=== PATIENT | male | born 1950 | race Caucasian/White ===

== ENCOUNTER → 2019-11-17 16:36 | Outpatient (BNVA) | payer MEDICARE, SELFPAY | PROVIDERS: Family Provider Nurse Practitioner; Visit Provider Nurse Practitioner Family | DX: R05 Cough (principal); R53.1 Weakness | CPT/HCPCS: 71046; 81001; 85025 ==

== ENCOUNTER 2019-12-10 13:37 | Outpatient (CLI) | payer MEDICARE, SELFPAY ==
--- NOTE | 2019-12-10 14:15 | CT_ITS ---
WS: [id number] CT HEAD TECHNIQUE: Noncontrast CT of the head obtained from the skullbase to the vertex. CLINICAL INFORMATION: dizziness, slurred speech COMPARISON: None. DLP: 992.[address] scans at [facility] use at least one of these dose optimization techniques: automat ed exposure control; mA and/or kV adjustment per patient size (includes targeted exams where dose is matched to clinical indication); or iterative reconstruction. FINDINGS: No evidence of intracranial hemorrhage or mass effect. Ventricular system and basal cisterns are alexander nt. Mild small vessel changes with moderate parenchymal volume loss worse in the frontal lobes. No ex tra-axial fluid collections. No evidence of mass or mass effect. Normal rubio-white differentiation. Partial opacification of the frontal ethmoidal recesses and ethmoid air cells. Polypoid opacification left sphenoid sinus. Mastoid air cells well aerated. CT/CT head wo con* [id number] IMPRESSION: 1. No evidence of intracranial hemorrhage or mass effect. 2. Mild small vessel changes with moderate parenchymal volume loss worse in th e frontal lobes. 3. Frontal ethmoidal and ethmoid fluid and mucosal thickening consistent with sinusitis. 4. Polyp or retention cyst left sphenoid sinus measuring 2.5 cm.
== END 2019-12-10 13:38 | disposition home or self-care (01) ==
LOC: RADWPI 13:47
PROVIDERS: Family Provider Nurse Practitioner; PCP Nurse Practitioner Family; Visit Provider Nurse Practitioner Family
DX: R42 Dizziness and giddiness (principal); R47.81 Slurred speech
CPT/HCPCS: 70450

== ENCOUNTER → 2019-12-29 09:20 | Outpatient (BNVA) | payer MEDICARE, SELFPAY | PROVIDERS: Family Provider Nurse Practitioner; PCP Nurse Practitioner; Visit Provider Nurse Practitioner | DX: R42 Dizziness and giddiness (principal); I10 Essential (primary) hypertension; R63.4 Abnormal weight loss; Z87.19 Personal history of other diseases of the digestive system | CPT/HCPCS: 80053; 81000; 85025 ==

== ENCOUNTER 2020-01-05 08:54 | Outpatient (CLI) | payer MEDICARE, SELFPAY ==
[2020-01-05] MEDS: iohexol 300 mg/mL 50 mL Btl PO (09:24)
--- NOTE | 2020-01-05 10:15 | CT_ITS ---
WS: [id number] CT CHEST, ABDOMEN, AND PELVIS TECHNIQUE: Noncontrast CT of the chest, abdomen, and pelvis with coronal and sagittal reformatted geovanni ges. CLINICAL INFORMATION: weight loss/rectal bleeding COMPARISON: None. DLP: 2211.[address] scans at [facility] use at least one of these dose optimization techniques: automat ed exposure control; mA and/or kV adjustment per patient size (includes targeted exams where dose is matched to clinical indication); or iterative reconstruction. CT CHEST: Mild chronic emphysematous changes. No acute pulmonary infiltrates. No acute pulmonary infiltrates. N o focal pneumonia. No consolidation or pleural fluid. No suspicious pulmonary parenchymal abnormaliti es. Calcified granuloma left lower lobe. No mediastinal or hilar lymphadenopathy. Aortic calcificatio n. Coronary calcification. Normal GE junction. No axillary lymphadenopathy. CT ABDOMEN AND PELVIS: Noncontrast liver is normal. 6 mm low-attenuation lesion in the dome the liver likely hepatic cyst. M ultiple calcified gallstones in the gallbladder. Gallbladder is contracted. Prominent gallstone in th e gallbladder neck measuring 1.8 cm. Gallbladder can be further evaluated with ultrasound. Noncontrast pancreas is normal. Noncontrast spleen is normal. Adrenal glands normal. No obstructing r enal or ureteral calculi. No hydronephrosis. Small left renal cyst. Infrarenal abdominal aortic aneurysm measuring 2.9 x 2.8 cm. Normal sigmoid colon. No evidence of small or large bowel obstruction. Normal appendix. Enlarged pros monteiro measuring 4.8 x 5.5 CM. Recommend correlation PSA. No free fluid in the pelvis. No abdominal or pelvic lymphadenopathy. Tiny incidental fat-containing umbilical hernia. CT/CT chest abd pel wo con IMPRESSION: 1. Mild chronic emphysematous changes. No acute pulmonary infiltrates. 2. No mediastinal or hilar lymphadenopathy. 3. Gallbladder is contracted with multiple large calcified gallstones one in t he gallbladder neck measuring 1.8 cm. Recommend further evaluation with ultraso und. No pericholecystic fluid. 4. Normal sigmoid colon. No evidence of small or large bowel obstruction. 5. Markedly enlarged prostate measuring 5.5 x 4.8 cm. Recommend correlation PS A. 6. No adenopathy in the chest abdomen or pelvis. 7. Infrarenal abdominal aortic aneurysm measuring 2.9 x 2.8 cm.
== END 2020-01-05 08:55 | disposition home or self-care (01) ==
LOC: RADWPI 08:58
PROVIDERS: Family Provider Nurse Practitioner; PCP Nurse Practitioner; Visit Provider Nurse Practitioner
DX: K62.5 Hemorrhage of anus and rectum (principal); R63.4 Abnormal weight loss; Z87.19 Personal history of other diseases of the digestive system; J43.9 Emphysema, unspecified; K80.80 Other cholelithiasis without obstruction; N40.0 Benign prostatic hyperplasia without lower urinary tract symptoms; I71.4 Abdominal aortic aneurysm, without rupture
CPT/HCPCS: 71250; 74176

== ENCOUNTER → 2020-02-04 12:31 | Outpatient (BNVA) | payer MEDICARE, SELFPAY | PROVIDERS: Family Provider Nurse Practitioner; PCP Nurse Practitioner; Visit Provider Nurse Practitioner | DX: I10 Essential (primary) hypertension (principal); I69.30 Unspecified sequelae of cerebral infarction | CPT/HCPCS: 80061 ==

== ENCOUNTER 2020-03-04 15:49 | Emergency (ER) | payer MEDICARE, SELFPAY ==
[2020-03-04 16:16] VITALS: BP 128/77; PULSE 104; RESP 14; TEMP 36.7; O2SAT 96; BMI 25.8
--- NOTE | 2020-03-04 17:54 | USR_ITS ---
PROCEDURE INFORMATION: Exam: US Abdomen, Limited; Right Upper Quadrant Exam date and time: 03/04/2020 6:05 PM Age: 69 years old Clinical indication: Abdominal pain; Acute; Patient HX: History of gb stones; Additional info: Abd pain, history of gall bladder stones TECHNIQUE: Imaging protocol: US abdomen. Real time ultrasound with image documentation. Limited exam focused on the right upper quadrant. COMPARISON: CT chest abd pel wo con 01/05/2020 10:33 AM FINDINGS: Liver: Normal. No masses. Gallbladder: Contracted with multiple gallstones. GB wall measures 7.2 mm Common bile duct: Normal. No stones. No dilation. 6.7 mm Pancreas: Visualized pancreas is unremarkable. Pancreatic tail is not visible Right kidney: Normal. No mass. No hydronephrosis. 10.4 cm x 4.8 cm x 5.1 cm. Aorta: There is an ectatic abdominal aorta AP measurements are 2.7 cm. US/US gall bladder [id number] IMPRESSION: 1. Contracted gallbladder with multiple gallstones and gallbladder wall thickening 2. Ectatic abdominal aorta 3. Otherwise negative examination
[2020-03-04 17:59] VITALS: BP 165/84; RESP 16; O2SAT 96
[2020-03-04 18:02] LABS: Basophils % 0.5 %; Eosinophils # 0.1 10^3/uL (0.0-0.8); Eosinophils % 1.8 %; Hematocrit 49.6 % (42.0-52.0); Lymphocytes # 1.3 10^3/uL (0.8-4.8); Lymphocytes % 17.6 %; Mean Corpuscular HGB Conc 32.3 g/dL (30.0-36.0); Mean Corpuscular Hemoglobin 29.5 pg (28.0-34.0); Mean Corpuscular Volume 91.3 fL (80-94); Mean Platelet Volume 9.2 fL (7.4-10.4); Monocytes # 0.5 10^3/uL (0.2-0.9); Monocytes % 6.3 %; Neutrophils # 5.4 10^3/uL (1.8-7.7); Neutrophils % 73.5 %; Nucleated Red Blood Cells % 0 %; Platelet Count 288 10^3/cmm (130-400); Red Blood Count 5.43 10^6/uL (4.1-5.3); Red Cell Distribution Width 13.2 % (12.1-15.1); White Blood Count 7.3 10^3/uL (4.0-10.0)
[2020-03-04 18:03] VITALS: PULSE 89; RESP 17; O2SAT 97
[2020-03-04 18:16] LABS: Alanine Aminotransferase 16 U/L (0-41); Albumin Level 4.5 g/dL (3.5-5.2); Alkaline Phosphatase 131 IU/L (40-130); Anion Gap 16.6 (5-19); Aspartate Amino Transferase 14 U/L (0-40); Blood Urea Nitrogen 11 mg/dL (8-23); Calcium 9.9 mg/dL (8.5-10.5); Carbon Dioxide 27 mmol/L (22-29); Chloride 98 mmol/L (98-107); Creatinine Clr Calc Pharmacy 67.6639; Globulin 3.1 g/dL (1.3-4.6); Glomerular Filtration Rate 73.9 mL/min (90-130); Glucose 103 mg/dL (65-115); Lipase 33 U/L (13-60); Osmolality Calculated 282 mOsm/kg (285-295); Potassium 3.6 mmol/L (3.5-5.1); Sodium 138 mmol/L (136-145); Total Bilirubin 0.2 mg/dL (0.15-1.2); Total Protein 7.6 g/dL (6.6-8.7)
[2020-03-04 18:19] LABS: Lactate (Lactic Acid level) 1.2 mmol/L (0.5-2.2)
[2020-03-04 18:48] LABS: Blood Urine 3+ (Negative); Glucose Urine UA Norm (Normal); Ketones Urine 1+ (Negative); Protein Urine 1+ (Negative); Specific Gravity, Urine 1.025 (1.005-1.030); Urine Color Yellow (Yellow); pH Urine 5 (5-7)
[2020-03-04 18:49] LABS: Add Urine Microscopic? YES; Bilirubin Urine Neg (NEGATIVE); Leukocyte Esterase Urine 2+ (Negative); Nitrate Urine Negative (Negative); Urobilinogen Urine 1 mg/dL (Negative)
[2020-03-04 18:57] LABS: Bacteria Urine 2+; Calcium Oxalate Crystals Urine 0-4 /hpf; RBC Urine 25-40 /hpf (0-2); Squamous Epithelial Cell Urine 0-4 (0-5); WBC Urine 15-25 /hpf (0-5)
[2020-03-04 18:58] LABS: Add Urine Culture? Yes
--- NOTE | 2020-03-04 19:05 | CTR_ITS ---
PROCEDURE INFORMATION: Exam: CT Angiography Abdomen and Pelvis With Contrast Exam date and time: 03/04/2020 7:33 PM Age: 69 years old Clinical indication: Condition or disease; Other: Aaa; Additional info: Aaa, rectal bleeding TECHNIQUE: Imaging protocol: Computed tomographic angiography of the abdomen and pelvis with intravenous contrast material. 3D rendering: MIP and/or 3D reconstructed images were created by the technologist. Radiation optimization: All CT scans at this facility use at least one of these dose optimization techniques: automated exposure control; mA and/or kV adjustment per patient size (includes targeted exams where dose is matched to clinical indication); or iterative reconstruction. Contrast material: OMNI 350; Contrast volume: 95 ml; Contrast route: INTRAVENOUS (IV); COMPARISON: CT chest abd pel wo con 01/05/2020 10:33 AM RADIATION DOSE METRICS: Total DLP (mGy-cm): 552.13 FINDINGS: Tubes, catheters and devices: Urinary bladder with Rodriges catheter in place. Aorta: Examination again reveals a infrarenal fusiform abdominal aortic aneurysm with maximum AP intraluminal diameter proximally 33 mm in transverse diameter 30 mm. Length of the aneurysm approximately 5.2 cm. Moderate intramural thrombus. No luminal occlusion. 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 Left common iliac for 13 mm in the right 16 mm. 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 Partial retrograde filling through collaterals. Narrow lumens of the left external and internal iliac arteries but without complete occlusion. Celiac trunk and mesenteric arteries: Celiac artery, superior mesenteric artery, bilateral renal arteries, and the inferior mesenteric artery without evidence of hemodynamically significant stenosis or occlusion. Renal arteries: No occlusion or significant stenosis. Right iliac arteries: See Aorta finding. Left iliac arteries: See Aorta finding. Liver: Tiny simple cyst left hepatic lobe. Liver otherwise unremarkable. Gallbladder and bile ducts: Contracted gallbladder containing a large gallstone that measures 28 mm by 20 mm. Rare substantially smaller stones. No intra or extrahepatic biliary ectasia. Pancreas: Unremarkable. No mass. No ductal dilation. Spleen: Unremarkable. No splenomegaly. Adrenals: Unremarkable. No mass. Kidneys and ureters: Stable simple cortical cyst equator left kidney and stable tiny cortical cyst inferior pole right kidney. No follow-up recommended. No hydronephrosis or perinephric fluid. Stomach and bowel: Nonobstructive bowel pattern. No visible adynamic or reactive ileus. No evidence for diverticulosis coli or diverticulitis. Appendix: The appendix is visualized and is noninflamed. Intraperitoneal space: Unremarkable. No free air. No significant fluid collection. Lymph nodes: Unremarkable. No enlarged lymph nodes. Bladder: Rodriges catheter within the urinary bladder. Diffuse bladder wall thickening. Reproductive: Prostate hypertrophy. Bones/joints: Age-appropriate degenerative disease. No visible active or acute osseous abnormality identified. Soft tissues: Unremarkable. CT/CT angio abdomen pelvis [id number] IMPRESSION: 1. Examination again reveals a infrarenal fusiform abdominal aortic aneurysm with maximum AP intraluminal diameter proximally 33 mm in transverse diameter 30 mm. Length of the aneurysm approximately 5.2 cm. 2. 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 Partial retrograde filling through collaterals. 3. Other nonurgent, nonemergent, chronic, and age related findings as detailed in text above. Radiation Dose CTDIVOL = (mGy): DLP = 552.13 (mGy-cm)
[2020-03-04] MEDS: iohexol 350 mg/mL 100 mL Btl IV (19:55)
--- NOTE | 2020-03-04 21:21 | ED_ITS ---
HPI - Abdominal Pain General: Chief Complaint: Abdominal Pain Stated Complaint: poss seizure Time Seen by Provider: 03/04/20 17:26 Source: patient and family Mode of arrival: ambulatory History of Present Illness: HPI narrative: Patient presents to the emergency department with his daughter and his and his family wanted him evaluated for possible gallbladder disease. He has a history of gallstones. The patient is reluctant to be seen in the emergency department. He however has no complaints today, he denies any abdominal pain, nausea, vomiting. He does states that he occasionally has blood in his stools when he has a hard bowel movements. He has a history of hemorrhoids and he believes his hemorrhoids bleed when he pushes a hard bowel movement. He developed seizures a few months ago and has been worked up including several CTs, EEGs, lumbar puncture and no diagnosis has been found. He has been referred to a neurologist at [place] and the appointment is upcoming. He has also been advised to obtain a colonoscopy which she has been hesitant to do according to the patient and his family. The patient however states he is ready to do that now. His daughter brings him in because she would like all his outstanding test to be done including a colonoscopy. Advised her that unless he has an acute reason a colonoscopy will not be performed in the hospital, it will need to be done out patient. His daughter kept adding different stories in an attempt 1 of them will get him admitted. The patient does not desire to be here and eventually got into an argument with his daughter and I had to ask her to leave the room as she was upsetting him. Associated Symptoms: Denies chills, dysuria, fever(s), nausea and vomiting Review of Systems General: Reports: 10 or more systems reviewed and unremarkable except in HPI and below Const: Denies: fever(s), chills or body aches Eyes: Denies: change in vision or blurry vision ENMT: Denies: throat pain, enlarged tonsils, odynophagia, hoarseness, mouth pain or swelling of lips/tongue Card: Denies: palpitations, irregular heart rhythm, edema or swelling of feet/ankles Resp: Denies: dyspnea, productive cough or non-productive cough GI: Denies: abdominal pain, nausea or vomiting : Denies: flank pain, dysuria, urinary frequency, urinary urgency or urinary hesitancy Musc: Denies: neck pain, back pain or extremity swelling Skin/Breast: Denies: rash, pruritus or erythema Neuro: Denies: headache(s), numbness in extremities or weakness in extremities Endo: Denies: polyuria, polydipsia or tired all the time PFSH ED PFSH: Medical History Bronchitis History of CVA with residual deficit History of hearing loss History of rectal bleeding Rapid weight loss Sinusitis Surgical History No history of previous surgery Family History Mother Vascular disease Father Cancer Denies family history of Anesthesia complication Bleeding disorder Social History Smoking and tobacco status: current every day smoker cigarettes Packs smoked per day: 1 Years cigarettes smoked: 40 Second hand smoke exposure: Yes Smoking risk assessment/counseling performed?: Yes Alcohol intake: never Desire information about alcohol rehabilitation?: No Counseling given: No Desire information about substance/drug rehabilitation?: No Counseling given: No Adopted: No Caregiver/support person: No Lives independently: Yes Household members: spouse Housing: House Marital status: Current occupational status: retired History of recent travel: No Current gender identity: Male Physical Exam Const: COMMON NORMALS: no acute distress, average body habitus, patient oriented x3, no limitations, healthy appearing, alert and well nourished Neck/C-Spine: COMMON NORMALS: no meningeal signs and no JVD Resp: COMMON NORMALS: normal respiratory effort, No retractions, No use of accessory muscles, clear to auscultation bilaterally and percussion normal AUSCULTATION: clear to auscultation bilaterally PERCUSSION: percussion normal Cardio: COMMON NORMALS: no JVD, regular rate, regular rhythm, S1 normal heart sound present, S2 normal heart sound present, No gallops present (Cardio), No clicks present (Cardio), No murmurs present (Cardio), No rub (Cardio) and Peripheral pulses 2+ throughout RATE: regular rate RHYTHM: regular rhythm HEART SOUNDS: S1 normal heart sound present and S2 normal heart sound present PERIPHERAL PULSES: Peripheral pulses 2+ throughout GI: COMMON NORMALS: Normal to inspection, nondistended, normoactive bowel sounds present, Soft to palpation, non-tender, No hepatosplenomegaly present, no masses and no bruits PALPATION: Yes Soft to palpation and Yes No hepatosplenomegaly present : COMMON NORMALS: Yes no CVA tenderness BLADDER/KIDNEY EXAM: Yes no CVA tenderness Back/Pelvis: COMMON NORMALS: no CVA tenderness Extremity: COMMON NORMALS: normal to inspection, full ROM, capillary refill normal, no calf tenderness and no pedal edema Neuro: COMMON NORMALS: patient oriented x3 SENSORIUM/ORIENTATION: Yes alert MENINGEAL SIGNS: Yes no meningeal signs Skin: COMMON NORMALS: no rashes or lesions noted, no wounds, turgor normal, no jaundice, no petechiae and no mottling GENERAL SKIN EXAM: no rashes or lesions noted and turgor normal Course Consultations: Consultation #1: Dr. Glover, vascular surgeon at [facility] in [place]. Since the patient has collaterals these are chronic findings and he will be seen in the clinic in 2 weeks. Vascular surgery clinic will contact the patient and schedule an appointment. Time: 21:19 Vital Signs: Vital signs: Vital Signs Temperature 98.0 F 03/04/20 16:16 Pulse Rate 86 03/04/20 21:46 Respiratory Rate 17 03/04/20 18:03 Blood Pressure 124/76 03/04/20 21:46 Pulse Oximetry 96 03/04/20 21:46 MDM - Abdominal Pain MDM Narrative: Medical decision making narrative: 69-year-old gentleman who was brought into the emergency department for evaluation of his gallbladder. Ultrasound of his gallbladder shows cholelithiasis but no cholecystitis. An incidental finding on his ultrasound showed an ectatic aorta are and since he had occasional rectal bleeding I ordered a CTA of his aorta. CTA showed an aneurysm and a completely occluded right internal iliac artery. He has some thrombus and atherosclerosis in his common iliac artery. He does have collaterals. I contacted the vascular surgeon and he will see the patient in the clinic. The patient has recent onset seizures and has been worked up but has a follow-up appointment in [place] for these. He also has appointments for colonoscopy and other doctors appointments that he will get to. I explained to the patient and his family that there is no indication for admission and so we will discharge him home. Lab Data: Labs: Lab Results 03/04/20 03/04/20 03/04/20 Range/Units 17:48 17:48 17:48 WBC 7.3 (4.0-10.0) 10^3/ uL RBC 5.43 H (4.1-5.3) 10^6/u L Hgb 16.0 (11.7-16.6) g/dL Hct 49.6 (42.0-52.0) % MCV 91.3 (80-94) fL MCH 29.5 (28.0-34.0) pg MCHC 32.3 (30.0-36.0) g/dL RDW 13.2 (12.1-15.1) % Plt Count 288 (130-400) 10^3/c mm MPV 9.2 (7.4-10.4) fL Neut % (Auto) 73.5 % Lymph % (Auto) 17.6 % [place] % (Auto) 6.3 % Eos % (Auto) 1.8 % Baso % (Auto) 0.5 % Neut # (Auto) 5.4 (1.8-7.7) 10^3/u L Lymph # (Auto) 1.3 (0.8-4.8) 10^3/u L [place] # (Auto) 0.5 (0.2-0.9) 10^3/u L Eos # (Auto) 0.1 (0.0-0.8) 10^3/u L Baso # (Auto) 0.0 (0.0-0.1) 10^3/u L Nucleated RBC % (a uto) 0 % Nucleated RBCs # 0.0 /100WBC Sodium 138 (136-145) mmol/L Potassium 3.6 (3.5-5.1) mmol/L Chloride 98 (98-107) mmol/L Carbon Dioxide 27 (22-29) mmol/L Anion Gap 16.6 (5-19) BUN 11 (8-23) mg/dL Creatinine 1.0 (0.7-1.2) mg/dL GFR Calculation 73.9 L (90-130) mL/min Glucose 103 (65-115) mg/dL Calculated Osmolal ity 282 L (285-295) mOsm/k g Lactate 1.2 (0.5-2.2) mmol/L Calcium 9.9 (8.5-10.5) mg/dL Total Bilirubin 0.2 (0.15-1.2) mg/dL AST 14 (0-40) U/L ALT 16 (0-41) U/L Alkaline Phosphata se 131 H (40-130) IU/L Total Protein 7.6 (6.6-8.7) g/dL Albumin 4.5 (3.5-5.2) g/dL Globulin 3.1 (1.3-4.6) g/dL Lipase 33 (13-60) U/L Urine Color (Yellow) Urine Appearance (CLEAR) Urine pH (5-7) Ur Specific Gravit y (1.005-1.030) Urine Protein (Negative) Urine Glucose (UA) (Normal) Urine Ketones (Negative) Urine Blood (Negative) Urine Nitrate (Negative) Urine Bilirubin (NEGATIVE) Urine Urobilinogen (Negative) mg/dL Ur Leukocyte Palak ase (Negative) Urine RBC (0-2) /hpf Urine WBC (0-5) /hpf Ur Squamous Epith Cells (0-5) Calcium Oxalate Cr ystal /hpf Amorphous Sediment Urine Bacteria (NONE) 03/04/20 Range/Units 18:33 WBC (4.0-10.0) 10^3/ uL RBC (4.1-5.3) 10^6/u L Hgb (11.7-16.6) g/dL Hct (42.0-52.0) % MCV (80-94) fL MCH (28.0-34.0) pg MCHC (30.0-36.0) g/dL RDW (12.1-15.1) % Plt Count (130-400) 10^3/c mm MPV (7.4-10.4) fL Neut % (Auto) % Lymph % (Auto) % [place] % (Auto) % Eos % (Auto) % Baso % (Auto) % Neut # (Auto) (1.8-7.7) 10^3/u L Lymph # (Auto) (0.8-4.8) 10^3/u L [place] # (Auto) (0.2-0.9) 10^3/u L Eos # (Auto) (0.0-0.8) 10^3/u L Baso # (Auto) (0.0-0.1) 10^3/u L Nucleated RBC % (a uto) % Nucleated RBCs # /100WBC Sodium (136-145) mmol/L Potassium (3.5-5.1) mmol/L Chloride (98-107) mmol/L Carbon Dioxide (22-29) mmol/L Anion Gap (5-19) BUN (8-23) mg/dL Creatinine (0.7-1.2) mg/dL GFR Calculation (90-130) mL/min Glucose (65-115) mg/dL Calculated Osmolal ity (285-295) mOsm/k g Lactate (0.5-2.2) mmol/L Calcium (8.5-10.5) mg/dL Total Bilirubin (0.15-1.2) mg/dL AST (0-40) U/L ALT (0-41) U/L Alkaline Phosphata se (40-130) IU/L Total Protein (6.6-8.7) g/dL Albumin (3.5-5.2) g/dL Globulin (1.3-4.6) g/dL Lipase (13-60) U/L Urine Color Yellow (Yellow) Urine Appearance Sl cloudy A (CLEAR) Urine pH 5 (5-7) Ur Specific Gravit y 1.025 (1.005-1.030) Urine Protein 1+ H (Negative) Urine Glucose (UA) Norm (Normal) Urine Ketones 1+ H (Negative) Urine Blood 3+ H (Negative) Urine Nitrate Negative (Negative) Urine Bilirubin Neg (NEGATIVE) Urine Urobilinogen 1 H (Negative) mg/dL Ur Leukocyte Palak ase 2+ H (Negative) Urine RBC 25-40 H (0-2) /hpf Urine WBC 15-25 H (0-5) /hpf Ur Squamous Epith Cells 0-4 H (0-5) Calcium Oxalate Cr ystal 0-4 H /hpf Amorphous Sediment Not Reportable Urine Bacteria 2+ H (NONE) Imaging Data ^: Other CT: Radiologist's impression: [address] [address] [address] Scan Report Signed Patient: Bereket Lopes #: [id number] : 1950Acct#:[id number] Age/Sex: 69 / MADM Date: 03/04/20 Loc: ERRoom/Bed: Attending Dr: Ordering Provider/Ordering MD: Cindi Duckworth MD, NATALIE Date of Service: 03/04/20 Procedure(s): CT angio abdomen pelvis 78877 Accession Number(s): [id number] Report Number: [id number] PROCEDURE INFORMATION: Exam: CT Angiography Abdomen and Pelvis With Contrast Exam date and time: 03/04/2020 7:33 PM Age: 69 years old Clinical indication: Condition or disease; Other: Aaa; Additional info: Aaa, rectal bleeding TECHNIQUE: Imaging protocol: Computed tomographic angiography of the abdomen and pelvis with intravenous contrast material. 3D rendering: MIP and/or 3D reconstructed images were created by the technologist. Radiation optimization: All CT scans at this facility use at least one of these dose optimization techniques: automated exposure control; mA and/or kV adjustment per patient size (includes targeted exams where dose is matched to clinical indication); or iterative reconstruction. Contrast material: OMNI 350; Contrast volume: 95 ml; Contrast route: INTRAVENOUS (IV); COMPARISON: CT chest abd pel wo con 01/05/2020 10:33 AM RADIATION DOSE METRICS: Total DLP (mGy-cm): 552.13 FINDINGS: Tubes, catheters and devices: Urinary bladder with Rodriges catheter in place. Aorta: Examination again reveals a infrarenal fusiform abdominal aortic aneurysm with maximum AP intraluminal diameter proximally 33 mm in transverse diameter 30 mm. Length of the aneurysm approximately 5.2 cm. Moderate intramural thrombus. No luminal occlusion. 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 Left common iliac for 13 mm in the right 16 mm. 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 Partial retrograde filling through collaterals. Narrow lumens of the left external and internal iliac arteries but without complete occlusion. Celiac trunk and mesenteric arteries: Celiac artery, superior mesenteric artery, bilateral renal arteries, and the inferior mesenteric artery without evidence of hemodynamically significant stenosis or occlusion. Renal arteries: No occlusion or significant stenosis. Right iliac arteries: See Aorta finding. Left iliac arteries: See Aorta finding. Liver: Tiny simple cyst left hepatic lobe. Liver otherwise unremarkable. Gallbladder and bile ducts: Contracted gallbladder containing a large gallstone that measures 28 mm by 20 mm. Rare substantially smaller stones. No intra or extrahepatic biliary ectasia. Pancreas: Unremarkable. No mass. No ductal dilation. Spleen: Unremarkable. No splenomegaly. Adrenals: Unremarkable. No mass. Kidneys and ureters: Stable simple cortical cyst equator left kidney and stable tiny cortical cyst inferior pole right kidney. No follow-up recommended. No hydronephrosis or perinephric fluid. Stomach and bowel: Nonobstructive bowel pattern. No visible adynamic or reactive ileus. No evidence for diverticulosis coli or diverticulitis. Appendix: The appendix is visualized and is noninflamed. Intraperitoneal space: Unremarkable. No free air. No significant fluid collection. Lymph nodes: Unremarkable. No enlarged lymph nodes. Bladder: Rodriges catheter within the urinary bladder. Diffuse bladder wall thickening. Reproductive: Prostate hypertrophy. Bones/joints: Age-appropriate degenerative disease. No visible active or acute osseous abnormality identified. Soft tissues: Unremarkable. CT/CT angio abdomen pelvis 44080 IMPRESSION: 1. Examination again reveals a infrarenal fusiform abdominal aortic aneurysm with maximum AP intraluminal diameter proximally 33 mm in transverse diameter 30 mm. Length of the aneurysm approximately 5.2 cm. 2. 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 Partial retrograde filling through collaterals. 3. Other nonurgent, nonemergent, chronic, and age related findings as detailed in text above. Radiation Dose CTDIVOL = (mGy): DLP = 552.13 (mGy-cm) Dictated By:Ger Jovel Signed By:Karlo Jovel Date/Time:03/04/202016 DD/ 14 US: Radiologist's impression: [address] [place] [address] Ultrasound Report Signed Patient: Bereket Lopes #: [id number] : 9Acct#:[id number] Age/Sex: 69 / MADM Date: 03/04/20 Loc: ERRoom/Bed: Attending Dr: Ordering Provider/Ordering MD: Cindi Duckworth MD, [facility] Date of Service: 03/04/20 Procedure(s): US gall bladder 21229 Accession Number(s): [id number] Report Number: [id number] PROCEDURE INFORMATION: Exam: US Abdomen, Limited; Right Upper Quadrant Exam date and time: 03/04/2020 6:05 PM Age: 69 years old Clinical indication: Abdominal pain; Acute; Patient HX: History of gb stones; Additional info: Abd pain, history of gall bladder stones TECHNIQUE: Imaging protocol: US abdomen. Real time ultrasound with image documentation. Limited exam focused on the right upper quadrant. COMPARISON: CT chest abd pel wo con 01/05/2020 10:33 AM FINDINGS: Liver: Normal. No masses. Gallbladder: Contracted with multiple gallstones. GB wall measures 7.2 mm Common bile duct: Normal. No stones. No dilation. 6.7 mm Pancreas: Visualized pancreas is unremarkable. Pancreatic tail is not visible Right kidney: Normal. No mass. No hydronephrosis. 10.4 cm x 4.8 cm x 5.1 cm. Aorta: There is an ectatic abdominal aorta AP measurements are 2.7 cm. US/US gall bladder 76912 IMPRESSION: 1. Contracted gallbladder with multiple gallstones and gallbladder wall thickening 2. Ectatic abdominal aorta 3. Otherwise negative examination Dictated By:Lee Seymour Signed By:Samm Seymour Date/Time:03/04/201853 DD/ 51 Discharge Plan Discharge Patient Disposition: Home, Self-Care Clinical Impression: Iliac artery occlusion, right, Asymptomatic gallstones AAA (abdominal aortic aneurysm) Qualifiers: Presence of rupture: without rupture Qualified Code(s): I71.4 - Abdominal aortic aneurysm, without rupture Condition: Stable Prescriptions: Continued meclizine 25 mg tablet 25 mg PO TID PRN (Reason: dizziness) RF: 0 phenytoin sodium extended 100 mg capsule 100 mg PO TID RF: 0 atorvastatin [Lipitor] 10 mg tablet 10 mg PO DAILY Qty: 30 RF: 2 Discharge Orders: Discharge Order (Routine); Ordered 03/04/20 Ordered By: Cindi Duckworth Referrals: Abigail Huitron FNP-C [Primary Care Provider] - 1-3 days Patient Instructions: Abdominal Aortic Aneurysm (GEN) Activity Restrictions/Additional Instructions: Return for any new or worsening symptoms. Follow-up with your primary care provider within 3 days and with all your other appointments as scheduled. You will be contacted by the vascular surgery team from [facility] in [place] to schedule a clinic follow-up for your blocked arteries. Discharge Date/Time: 03/04/20 21:45 Coding Level of Care Code ED Manager Media for Nato Garcia
--- NOTE | 2020-03-04 21:44 | PC.NURSE ---
Pt informed of risks and benefits at discharge with daughter present
[2020-03-04 21:46] VITALS: BP 124/76; PULSE 86; O2SAT 96
--- NOTE | 2020-03-05 04:26 | PC.NURSE ---
Dr Duckworth spoke with [facility] ED cash register operator due to pt's daughter stating pt was supposed to have emergency surgery . Dr Duckworth explained that pt was d/c with dx of AAA due to pt's refusal to be transferred to [facility] ED via ground ambulance. Pt's daughter called dept twice demanding to speak to nursing staff stating pt was told he was leaving AMA and signed AMA paperwork. Pt daughter informed he signed normal discharge form with instructions for follow up care. Since pt refused to be transferred via EMS, his follow up was on outpatient status. [facility] zinc furnace charger called to verify that pt did not leave AMA and his follow up was on outpatient basis.
== END 2020-03-04 21:45 | disposition home or self-care (01) ==
PROVIDERS: Family Medicine; Emergency Provider Family Medicine; PCP Nurse Practitioner
DX: I74.5 Embolism and thrombosis of iliac artery (principal); I71.4 Abdominal aortic aneurysm, without rupture; Z86.73 Personal history of transient ischemic attack (TIA), and cerebral infarction without residual deficits; F17.210 Nicotine dependence, cigarettes, uncomplicated; Z79.899 Other long term (current) drug therapy
CPT/HCPCS: 12345; 74174; 76705; 80053; 81001; 83605; 83690; 85025; 87086; 99284; Q9967

== ENCOUNTER → 2020-03-15 10:52 | Outpatient (BNVA) | payer MEDICARE, SELFPAY | PROVIDERS: PCP Nurse Practitioner; Visit Provider Nurse Practitioner | DX: R56.9 Unspecified convulsions (principal); Z79.899 Other long term (current) drug therapy | CPT/HCPCS: 80185 ==

== ENCOUNTER → 2020-05-30 12:41 | Outpatient (BNVA) | payer MEDICARE, SELFPAY | PROVIDERS: PCP Nurse Practitioner; Visit Provider Specialist | DX: G40.109 Localization-related (focal) (partial) symptomatic epilepsy and epileptic syndromes with simple partial seizures, not intractable, without status epilepticus (principal); F17.210 Nicotine dependence, cigarettes, uncomplicated | CPT/HCPCS: 95816 ==

== ENCOUNTER 2020-11-02 18:05 | Emergency (ER) | payer OTHER, MEDICARE, SELFPAY ==
[2020-11-02 18:08] VITALS: BP 136/74; PULSE 103; RESP 16; TEMP 37.1; O2SAT 97; BMI 25.0
--- NOTE | 2020-11-02 18:17 | ECG_ITS ---
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
--- NOTE | 2020-11-02 18:17 | CTR_ITS ---
PROCEDURE INFORMATION: Exam: CT Head Without Contrast Exam date and time: 11/02/2020 7:05 PM Age: 70 years old Clinical indication: Altered mental status/memory loss; Additional info: AMS TECHNIQUE: Imaging protocol: Computed tomography of the head without contrast. Radiation optimization: All CT scans at this facility use at least one of these dose optimization techniques: automated exposure control; mA and/or kV adjustment per patient size (includes targeted exams where dose is matched to clinical indication); or iterative reconstruction. COMPARISON: CT head wo con* [id number] 12/10/2019 1:52 PM RADIATION DOSE METRICS: Total DLP (mGy-cm): 836.41 FINDINGS: Brain: There is moderate cerebral atrophy. No acute intracranial hemorrhage. No midline shift of brain. Randhawa matter white matter interfaces are preserved. No space-occupying intracranial mass. No acute brain ischemia identified. Cerebral ventricles: No ventriculomegaly. Bones/joints: Unremarkable. No acute fracture. Paranasal sinuses: Patchy mucosal thickening of ethmoid air cells. Fluid in the left sphenoid sinus. Mastoid air cells: Visualized mastoid air cells are well aerated. Vasculature: Mild intracranial atherosclerosis. Soft tissues: Unremarkable. CT/CT head wo con* [id number] IMPRESSION: 1. Negative for acute intracranial abnormality. 2. No change in the brain from comparison on 12/10/2019. Radiation Dose CTDIVOL = (mGy): DLP = 836.41 (mGy-cm)
--- NOTE | 2020-11-02 18:17 | XRR_ITS ---
PROCEDURE INFORMATION: Exam: XR Chest Exam date and time: 11/02/2020 7:10 PM Age: 70 years old Clinical indication: Patient HX: AMS. Unable to obtain further history. TECHNIQUE: Imaging protocol: XR of the chest Views: 1 view. COMPARISON: CT chest abd pel wo con 01/05/2020 10:33 AM FINDINGS: Lungs: Lungs are clear. Pleural spaces: There is no pleural effusion or pneumothorax. Heart/Mediastinum: Cardiomediastinal contours are unremarkable. Bones/joints: Bones are unremarkable. XR/XR chest 1V portable [id number] IMPRESSION: No acute findings.
[2020-11-02 18:26] VITALS: O2SAT 98
--- NOTE | 2020-11-02 18:36 | ED_ITS ---
HPI - Psych General: Chief Complaint: Psychiatric Symptoms Stated Complaint: SI/HI ENCEPHALOPATHY Time Seen by Provider: 11/02/20 18:17 Source: EMS Mode of arrival: EMS Limitations: no limitations History of Present Illness: HPI Narrative: 70-year-old male has a history of encephalopathy and is currently on hospice. Patient is here today as he has been having suicidal and homicidal ideations. Patient taken a sleeping pill he states he is trying to sleep denies actually being suicidal. When EMS did arrive though he was holding a shotgun to his and his states that he has been threatening to kill her over the last 2 days. Patient here has chronic confusion but is able to tell me his name and knows where he is. He is not orientated to the date or time. Associated symptoms: Reports homicidal ideation; Deny depression Review of Systems Const: Denies: fever(s), chills, body aches or change in appetite Eyes: Denies: blurry vision or eye discomfort ENMT: Denies: throat pain or dental pain Card: Denies: chest pain Resp: Denies: dyspnea GI: Denies: abdominal pain, nausea, vomiting or diarrhea : Denies: dysuria Musc: Denies: neck pain or back pain Skin/Breast: Denies: rash Neuro: Denies: headache(s) Psych: Reports: homicidal ideation; Denies: depression Davon/Lymph: Denies: easy bruising All/Imm: Denies: urticaria PFS ED PFSH: Medical History (Updated 11/03/20 @ 03:28 by Malini Babb MD) Anxiety about health Bronchitis Chronic sinusitis Encephalitis, viral, 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 History of hearing loss History of rectal bleeding Peripheral Vascular Disease Rapid weight loss Urinary retention Surgical History No history of previous surgery Family History Mother Vascular disease Father Cancer Denies family history of Anesthesia complication Bleeding disorder Social History Smoking and tobacco status: current every day smoker cigarettes Packs smoked per day: 1 Years cigarettes smoked: 40 Second hand smoke exposure: Yes Smoking risk assessment/counseling performed?: Yes Alcohol intake: never Desire information about alcohol rehabilitation?: No Counseling given: No Desire information about substance/drug rehabilitation?: No Counseling given: No Adopted: No Caregiver/support person: No Lives independently: Yes Household members: spouse Housing: House Marital status: Current occupational status: retired History of recent travel: No Current gender identity: Male Physical Exam Const: COMMON NORMALS: no acute distress, healthy appearing and alert; negative for patient oriented x3 ORIENTATION/CONSCIOUSNESS: Yes oriented to person and Yes oriented to place; not oriented to time HENMT: COMMON NORMALS: normocephalic and atraumatic HEAD & SCALP: normocephalic and atraumatic Eye: COMMON NORMALS: Equal, round and reactive pupils present and EOMs intact bilaterally PUPIL: Yes Equal, round and reactive pupils present Neck/C-Spine: COMMON NORMALS: full ROM and supple Chest: COMMONS NORMALS: normal inspection of the chest and normal palpation of entire chest wall Resp: COMMON NORMALS: normal respiratory effort, No retractions, No use of accessory muscles and clear to auscultation bilaterally AUSCULTATION: clear to auscultation bilaterally Cardio: COMMON NORMALS: regular rate, regular rhythm and No murmurs present (Cardio) RATE: regular rate RHYTHM: regular rhythm GI: COMMON NORMALS: Normal to inspection, nondistended, normoactive bowel sounds present, Soft to palpation, non-tender and no masses PALPATION: Yes Soft to palpation Extremity: COMMON NORMALS: normal to inspection and full ROM Neuro: COMMON NORMALS: moves all extremities and no focal motor deficits; negative for patient oriented x3 SENSORIUM/ORIENTATION: Yes alert, Yes oriented to person, Yes oriented to place and No oriented to time Psych: COMMON NORMALS: Normal thought process present; negative for mental status grossly normal THOUGHT PROCESS: Normal thought process present THOUGHT CONTENT: Yes Homicidality present Skin: COMMON NORMALS: no rashes or lesions noted and no wounds GENERAL SKIN EXAM: no rashes or lesions noted MDM - Psych MDM Narrative: Medical decision making narrative: Patient presents here with homicidal ideation along with depression. Patient is medically cleared here and is excepted to [facility] psych. Will transfer there at this time. Lab Data: Labs: Lab Results 11/02/20 11/02/20 11/02/20 Range/Units 19:01 19:01 20:19 WBC 6.5 (4.0-10.0) 10^3/ uL RBC 4.56 (4.1-5.3) 10^6/u L Hgb 13.8 (11.7-16.6) g/dL Hct 41.8 L (42.0-52.0) % MCV 91.7 (80-94) fL MCH 30.3 (28.0-34.0) pg MCHC 33.0 (30.0-36.0) g/dL RDW 13.8 (12.1-15.1) % Plt Count 256 (130-400) 10^3/c mm MPV 9.7 (7.4-10.4) fL Neut % (Auto) 64.1 % Lymph % (Auto) 21.4 % [place] % (Auto) 8.0 % Eos % (Auto) 5.4 % Baso % (Auto) 0.8 % Neut # (Auto) 4.14 (1.8-7.7) 10^3/u L Lymph # (Auto) 1.4 (0.8-4.8) 10^3/u L [place] # (Auto) 0.5 (0.2-0.9) 10^3/u L Eos # (Auto) 0.4 (0.0-0.8) 10^3/u L Baso # (Auto) 0.1 (0.0-0.1) 10^3/u L Nucleated RBC % (a uto) 0 % Nucleated RBCs # 0.0 /100WBC Sodium 140 (136-145) mmol/L Potassium 4.5 (3.5-5.1) mmol/L Chloride 104 (98-107) mmol/L Carbon Dioxide 28 (22-29) mmol/L Anion Gap 12.5 (5-19) BUN 14 (8-23) mg/dL Creatinine 1.1 (0.7-1.2) mg/dL GFR Calculation Not Reportable Glucose 101 (65-115) mg/dL Calculated Osmolal ity 291 (285-295) mOsm/k g Calcium 8.9 (8.5-10.5) mg/dL Total Bilirubin 0.2 (0.15-1.2) mg/dL AST 14 (0-40) U/L ALT 17 (0-41) U/L Alkaline Phosphata se 81 (40-130) IU/L Ammonia 33 (16-60) umol/L Total Protein 6.3 L (6.6-8.7) g/dL Albumin 3.7 (3.5-5.2) g/dL Globulin 2.6 (1.3-4.6) g/dL TSH 1.64 (0.27-4.20) uIU/ mL Urine Color (Yellow) Urine Appearance (CLEAR) Urine pH (5-7) Ur Specific Gravit y (1.005-1.030) Urine Protein (Negative) Urine Glucose (UA) (Normal) Urine Ketones (Negative) Urine Blood (Negative) Urine Nitrate (Negative) Urine Bilirubin (Negative) Urine Urobilinogen (Negative) mg/dL Ur Leukocyte Palak ase (Negative) Urine RBC (0-2) /hpf Urine WBC (0-5) /hpf Ur Squamous Epith Cells (0-5) /hpf Amorphous Sediment Urine Bacteria (NONE) /hpf Hyaline Casts /lpf Urine Mucus /hpf Salicylates < 0.3 L (3-10) mg/dL Urine Opiates Scre en (Negative) ng/mL Acetaminophen < 5.0 L (10-30) ug/mL Ur Barbiturates Sc reen (Negative) ng/mL Ur Phencyclidine S crn (Negative) ng/mL Ur Amphetamines Sc reen (Negative) ng/mL U Benzodiazepines Scrn (Negative) ng/mL Urine Cocaine Scre en (Negative) ng/mL U Marijuana (THC) Screen (Negative) ng/mL Ethyl Alcohol < 10 (0-10) mg/dL SARS-CoV-2 Ag (Rap id) (Negative) 11/02/20 11/02/20 11/02/20 Range/Units 20:19 20:19 20:55 WBC (4.0-10.0) 10^3/ uL RBC (4.1-5.3) 10^6/u L Hgb (11.7-16.6) g/dL Hct (42.0-52.0) % MCV (80-94) fL MCH (28.0-34.0) pg MCHC (30.0-36.0) g/dL RDW (12.1-15.1) % Plt Count (130-400) 10^3/c mm MPV (7.4-10.4) fL Neut % (Auto) % Lymph % (Auto) % Concordia % (Auto) % Eos % (Auto) % Baso % (Auto) % Neut # (Auto) (1.8-7.7) 10^3/u L Lymph # (Auto) (0.8-4.8) 10^3/u L Concordia # (Auto) (0.2-0.9) 10^3/u L Eos # (Auto) (0.0-0.8) 10^3/u L Baso # (Auto) (0.0-0.1) 10^3/u L Nucleated RBC % (a uto) % Nucleated RBCs # /100WBC Sodium (136-145) mmol/L Potassium (3.5-5.1) mmol/L Chloride (98-107) mmol/L Carbon Dioxide (22-29) mmol/L Anion Gap (5-19) BUN (8-23) mg/dL Creatinine (0.7-1.2) mg/dL GFR Calculation Glucose (65-115) mg/dL Calculated Osmolal ity (285-295) mOsm/k g Calcium (8.5-10.5) mg/dL Total Bilirubin (0.15-1.2) mg/dL AST (0-40) U/L ALT (0-41) U/L Alkaline Phosphata se (40-130) IU/L Ammonia (16-60) umol/L Total Protein (6.6-8.7) g/dL Albumin (3.5-5.2) g/dL Globulin (1.3-4.6) g/dL TSH (0.27-4.20) uIU/ mL Urine Color Yellow (Yellow) Urine Appearance Hazy A (CLEAR) Urine pH 5 (5-7) Ur Specific Gravit y 1.020 (1.005-1.030) Urine Protein Neg (Negative) Urine Glucose (UA) Norm (Normal) Urine Ketones Negative (Negative) Urine Blood Neg (Negative) Urine Nitrate Negative (Negative) Urine Bilirubin Neg (Negative) Urine Urobilinogen Norm (Negative) mg/dL Ur Leukocyte Palak ase Negative (Negative) Urine RBC 0-4 H (0-2) /hpf Urine WBC None (0-5) /hpf Ur Squamous Epith Cells 0-4 H (0-5) /hpf Amorphous Sediment Not Reportable Urine Bacteria Trace (NONE) /hpf Hyaline Casts 0-4 H /lpf Urine Mucus 2+ /hpf Salicylates (3-10) mg/dL Urine Opiates Scre en Negative (Negative) ng/mL Acetaminophen (10-30) ug/mL Ur Barbiturates Sc reen Negative (Negative) ng/mL Ur Phencyclidine S crn Negative (Negative) ng/mL Ur Amphetamines Sc reen Negative (Negative) ng/mL U Benzodiazepines Scrn Negative (Negative) ng/mL Urine Cocaine Scre en Negative (Negative) ng/mL U Marijuana (THC) Screen Positive H (Negative) ng/mL Ethyl Alcohol (0-10) mg/dL SARS-CoV-2 Ag (Rap id) Negative (Negative) Imaging Data^: CT Head: Attestation: I personally reviewed and interpreted this imaging study as follows: Radiologist's impression: [place] [address] CT Scan Report Signed Patient: Yunier Lopes Unit #: [id number] : 1950 Age/Sex: 70 / M ADM Date: 11/02/20 Loc: ER Room/Bed: Attending Dr: Ordering Provider/Ordering MD: Malini Babb MD Date of Service: 11/02/20 Procedure(s): CT head wo con* [id number] Accession Number(s): [id number] Report Number: [id number] PROCEDURE INFORMATION: Exam: CT Head Without Contrast Exam date and time: 11/02/2020 7:05 PM Age: 70 years old Clinical indication: Altered mental status/memory loss; Additional info: AMS TECHNIQUE: Imaging protocol: Computed tomography of the head without contrast. Radiation optimization: All CT scans at this facility use at least one of these dose optimization techniques: automated exposure control; mA and/or kV adjustment per patient size (includes targeted exams where dose is matched to clinical indication); or iterative reconstruction. COMPARISON: CT head wo con* [id number] 12/10/2019 1:52 PM RADIATION DOSE METRICS: Total DLP (mGy-cm): 836.41 FINDINGS: Brain: There is moderate cerebral atrophy. No acute intracranial hemorrhage. No midline shift of brain. Randhawa matter white matter interfaces are preserved. No space-occupying intracranial mass. No acute brain ischemia identified. Cerebral ventricles: No ventriculomegaly. Bones/joints: Unremarkable. No acute fracture. Paranasal sinuses: Patchy mucosal thickening of ethmoid air cells. Fluid in the left sphenoid sinus. Mastoid air cells: Visualized mastoid air cells are well aerated. Vasculature: Mild intracranial atherosclerosis. Soft tissues: Unremarkable. CT/CT head wo con* [id number] IMPRESSION: 1. Negative for acute intracranial abnormality. 2. No change in the brain from comparison on 12/10/2019. EKG Data^: EKG 1: Attestation: I personally reviewed and interpreted this EKG as follows: EKG interpretation date: 11/02/20 EKG interpretation time: 18:53 Interpretation: nsr hr [address] or t wave abnormalities qrs 101 qtc 405 Discharge Plan Discharge Patient Disposition: Xfer Other Clinical Impression: Suicidal ideation, Homicidal ideations Condition: Stable Prescriptions: No Action meclizine 25 mg tablet 25 mg PO TID PRN (Reason: dizziness) RF: 0 phenytoin sodium extended 100 mg capsule 100 mg PO TID RF: 0 levetiracetam 1,000 mg tablet 1,000 mg PO Q12H RF: 0 tamsulosin 0.4 mg capsule 0.4 mg PO DAILY Qty: 30 RF: 12 pantoprazole 40 mg tablet,delayed release (DR/EC) 40 mg PO DAILY RF: 0 metoprolol succinate 50 mg tablet extended release 24 hr 50 mg PO DAILY RF: 0 levocetirizine 5 mg tablet 5 mg PO DAILY RF: 0 atorvastatin 10 mg tablet 10 mg PO DAILY RF: 0 amlodipine 5 mg tablet 5 mg PO DAILY Qty: 90 RF: 3 escitalopram oxalate [Lexapro] 10 mg tablet 10 mg PO DAILY Qty: 30 RF: 0 Referrals: Abigail Huitron, REFERRAL RN-C [Primary Care Provider] - Coding Level of Care Code ED Window/Distribution Clerk for Chg Fwd Exam Comprehensive
[2020-11-02 19:03] VITALS: PULSE 97; O2SAT 98
[2020-11-02 19:09] LABS: Basophils # 0.1 10^3/uL (0.0-0.1); Basophils % 0.8 %; Eosinophils # 0.4 10^3/uL (0.0-0.8); Eosinophils % 5.4 %; Hematocrit 41.8 % (42.0-52.0); Hemoglobin 13.8 g/dL (11.7-16.6); Lymphocytes # 1.4 10^3/uL (0.8-4.8); Lymphocytes % 21.4 %; Mean Corpuscular Hemoglobin 30.3 pg (28.0-34.0); Mean Corpuscular Volume 91.7 fL (80-94); Mean Platelet Volume 9.7 fL (7.4-10.4); Monocytes # 0.5 10^3/uL (0.2-0.9); Neutrophils # 4.14 10^3/uL (1.8-7.7); Neutrophils % 64.1 %; Nucleated Red Blood Cells % 0 %; Platelet Count 256 10^3/cmm (130-400); Red Blood Count 4.56 10^6/uL (4.1-5.3); Red Cell Distribution Width 13.8 % (12.1-15.1); White Blood Count 6.5 10^3/uL (4.0-10.0)
--- NOTE | 2020-11-02 19:13 | PC.PHAR ---
PT IS UNABLE TO CONFIRM MEDICATIONS. I SPOKE WITH HIS NURSE AT [facility]. SHE STATED THAT THE ONLY THING THEY WERE DOING FOR HIM WAS MEDICAL MARIJUANA INHALATION. I THEN SPOKE WITH PT'S SERAFIN AND SHE STATED THAT HE WAS SUPPOSED TO BE TAKING SEIZURE MEDICATION, AND A COUPLE OF OTHER MEDICATIONS, BUT THAT HE USUALLY DID NOT TAKE THEM. DAUGHTER STATED THAT HE TAKES THINGS HE SHOULDN'T BE TAKING. I WAS UNABLE TO CONTACT HIS .
[2020-11-02 19:47] LABS: Alanine Aminotransferase 17 U/L (0-41); Albumin Level 3.7 g/dL (3.5-5.2); Alkaline Phosphatase 81 IU/L (40-130); Anion Gap 12.5 (5-19); Aspartate Amino Transferase 14 U/L (0-40); Blood Urea Nitrogen 14 mg/dL (8-23); Calcium 8.9 mg/dL (8.5-10.5); Carbon Dioxide 28 mmol/L (22-29); Chloride 104 mmol/L (98-107); Globulin 2.6 g/dL (1.3-4.6); Glucose 101 mg/dL (65-115); Osmolality Calculated 291 mOsm/kg (285-295); Potassium 4.5 mmol/L (3.5-5.1); Sodium 140 mmol/L (136-145); Thyroid Stimulating Hormone 1.64 uIU/mL (0.27-4.20); Total Bilirubin 0.2 mg/dL (0.15-1.2); Total Protein 6.3 g/dL (6.6-8.7)
[2020-11-02 19:48] LABS: Acetaminophen < 5.0 ug/mL (10-30); Alcohol Level < 10 mg/dL (0-10); Salicylate < 0.3 mg/dL (3-10)
[2020-11-02] MEDS: nicotine 21 mg Patch 1 PATCH TRANSDERMA (20:14)
[2020-11-02 20:55] LABS: Ammonia 33 umol/L (16-60)
[2020-11-02 21:17] VITALS: PULSE 90; O2SAT 97
[2020-11-02 21:28] LABS: SARS Covid-2 Antigen Negative (Negative)
[2020-11-02 22:47] LABS: Amphetamines Screen Urine Negative (Negative); Barbiturates Screen Urine Negative (Negative); Benzodiazepines Screen Urine Negative (Negative); Cocaine Screen Urine Negative (Negative); Opiate Screen Urine Negative (Negative); PCP Screen Urine Negative (Negative); THC Screen Urine Positive (Negative)
[2020-11-03 01:52] VITALS: PULSE 84; RESP 18; O2SAT 97
[2020-11-03 02:00] VITALS: BP 149/80; PULSE 86; RESP 18; O2SAT 97
[2020-11-03 02:01] LABS: Glucose Urine UA Norm (Normal); Ketones Urine Negative (Negative); Protein Urine Neg (Negative); Urine Appearance Hazy (CLEAR); Urine Color Yellow (Yellow); pH Urine 5 (5-7)
[2020-11-03 02:02] LABS: Add Urine Microscopic? YES; Bilirubin Urine Neg (Negative); Blood Urine Neg (Negative); Leukocyte Esterase Urine Negative (Negative); Nitrate Urine Negative (Negative); Urobilinogen Urine Norm (Negative)
[2020-11-03 02:15] LABS: RBC Urine 0-4 /hpf (0-2)
[2020-11-03 02:16] LABS: Bacteria Urine TRACE /hpf; Mucus Urine 2+ /hpf; Squamous Epithelial Cell Urine 0-4 /hpf (0-5)
[2020-11-03 02:18] LABS: Add Urine Culture? No; Hyaline Casts Urine 0-4 /lpf
[2020-11-03 04:45] VITALS: BP 138/78; PULSE 90; RESP 18; O2SAT 98
== END 2020-11-03 04:30 | disposition other institution (70) ==
PROVIDERS: Emergency Provider Emergency Medicine; PCP Nurse Practitioner
DX: R45.851 Suicidal ideations (principal); R45.850 Homicidal ideations; Z86.73 Personal history of transient ischemic attack (TIA), and cerebral infarction without residual deficits; F17.210 Nicotine dependence, cigarettes, uncomplicated
CPT/HCPCS: 36415; 70450; 71045; 80053; 80306; 80307; 81001; 82140; 84443; 85025; 87426; 93005; 99285

== ENCOUNTER → 2020-12-07 08:07 | Outpatient (BNVA) | payer MEDICARE, SELFPAY | PROVIDERS: PCP Nurse Practitioner; Visit Provider Specialist | DX: R47.1 Dysarthria and anarthria (principal); G40.109 Localization-related (focal) (partial) symptomatic epilepsy and epileptic syndromes with simple partial seizures, not intractable, without status epilepticus; F17.210 Nicotine dependence, cigarettes, uncomplicated | CPT/HCPCS: 95816; 99205 ==

== ENCOUNTER 2020-12-19 08:34 | Outpatient (CLI) | payer MEDICARE, SELFPAY ==
--- NOTE | 2020-12-19 09:06 | MR_ITS ---
WS: [id number] MRI HEAD WITH CONTRAST TECHNIQUE: Sagittal T1, T2 axial, T2 axial FLAIR, axial susceptibility weighted imaging, axial diffus ion weighted images, and coronal T2 images were obtained. Pre and post-T1 axial and post T1 coronal i mages. ADC and FSPGR images. CLINICAL INFORMATION: ENCEPHALITIS COMPARISON: CT November 02, 2020 FINDINGS: No evidence of restricted diffusion to suggest acute ischemia. Ventricular system and basal cisterns are patent. Mild small vessel changes. Moderate parenchymal volume loss. Normal posterior fossa. Norm al vascular flow voids at the skull base. No extra-axial fluid collections. No evidence of mass or ma ss effect. Mild mucosal thickening in the paranasal sinuses. Mastoid air cells are well aerated. No abnormal gadolinium enhancement. No hemosiderin on susceptibly weighted images. Normal optic chias m and pituitary infundibulum. Normal cavernous sinuses and Meckel's cave. Temporal lobes and hippocam pal formations are normal in appearance. Mesial temporal lobes are normal. No abnormal gadolinium enhancement. Normal dural venous sinuses. MR/MR head wo/w con [id number] IMPRESSION: 1. No evidence of restricted diffusion to suggest acute ischemia. 2. Mild small vessel changes with moderate parenchymal volume loss. 3. Temporal lobes and hippocampal formations are normal in appearance. No abno rmalities in the mesial temporal lobes. 4. No abnormal gadolinium enhancement. 5. Mild inflammatory changes in the paranasal sinuses. 6. No other significant findings.
[2020-12-19] MEDS: gadobenate dimeglumine 20 mL vial IV (09:46)
== END 2020-12-19 08:35 | disposition home or self-care (01) ==
PROVIDERS: PCP Nurse Practitioner; Visit Provider Specialist
DX: G04.90 Encephalitis and encephalomyelitis, unspecified (principal)
CPT/HCPCS: 70553; A9577